=== PATIENT | male | born 2000 | race American Indian/Alaskan Native ===

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

== ENCOUNTER 2020-03-29 01:06 | Emergency (ER) | payer MEDICAID ==
[2020-03-29 01:40] LABS: CHLORIDE,CL 102 mmol/L (98-107); SODIUM,NA 139 mmol/L (136-145)
[2020-03-29 02:24] VITALS: BP 110/68; PULSE 93
[2020-03-29] MEDS: Potassium Chloride 10 MEQ Tab.ER PO ONE (02:31)
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
--- NOTE | 2020-03-29 02:43 | CR ---
PROCEDURE INFORMATION: Exam: XR Chest, 1 View Exam date and time: 03/29/2020 2:17 AM Age: 19 years old Clinical indication: Chest pain; Type not specified TECHNIQUE: Imaging protocol: XR of the chest Views: 1 view. COMPARISON: CR Chest 1V Frontal 07/21/2019 2:54 AM FINDINGS: Lungs: Unremarkable. No consolidation. Pleural space: Unremarkable. No pleural effusion. No pneumothorax. Heart/Mediastinum: Unremarkable. No cardiomegaly. Bones/joints: Unremarkable. IMPRESSION: No acute findings.
== END 2020-03-29 02:45 | disposition home or self-care (01) ==
LOC: DL.ED 01:06
DX: F41.9 Anxiety disorder, unspecified (principal); E87.6 Hypokalemia; R82.5 Elevated urine levels of drugs, medicaments and biological substances; F17.210 Nicotine dependence, cigarettes, uncomplicated
CPT/HCPCS: 36415; 71045; 80053; 80305; 82150; 83690; 84484; 85025; 93005; 99285; A9270

== ENCOUNTER 2020-05-19 20:47 | Emergency (ER) | payer MEDICAID ==
[2020-05-19 21:02] VITALS: BP 130/90; PULSE 86
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
[2020-05-19] MEDS ORDERED: Sulfamethoxazole/Trimethoprim 800-160 MG Tab PO ONE (21:05)
== END 2020-05-19 21:14 | disposition home or self-care (01) ==
LOC: DL.ED 20:47
DX: L02.31 Cutaneous abscess of buttock (principal); F17.210 Nicotine dependence, cigarettes, uncomplicated
CPT/HCPCS: 99282; A9270

== ENCOUNTER 2021-04-14 07:35 | Emergency (ER) | payer MEDICAID ==
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
[~2021-04-14 07:35] MED LIST: Sodium Chloride 0.9% 10 ML Syringe FLUSH PRN
[2021-04-14 07:51] VITALS: BP 133/98; PULSE 90
[2021-04-14 08:33] LABS: ANION GAP 13.7 mEq/L (7-13); CHLORIDE,CL 98 mmol/L (98-107); SODIUM,NA 138 mmol/L (136-145)
[2021-04-14 08:53] LABS: AMPHETAMINES,URINE NEGATIVE (NEGATIVE); BARBITURATES,URINE NEGATIVE (NEGATIVE); BENZODIAZEPINE,URINE NEGATIVE (NEGATIVE); MDMA (ECSTASY), URINE NEGATIVE (NEGATIVE); METHADONE,URINE NEGATIVE (NEGATIVE); METHAMPHETAMINES,URINE NEGATIVE (NEGATIVE); OPIATES,URINE NEGATIVE (NEGATIVE); OXYCODONE,URINE NEGATIVE (NEGATIVE); PHENCYCLIDINE,URINE NEGATIVE (NEGATIVE); TCA,URINE NEGATIVE (NEGATIVE)
--- NOTE | 2021-04-14 09:45 | CR ---
PROCEDURE INFORMATION: Exam: XR Abdomen Exam date and time: 04/14/2021 8:31 AM Age: 20 years old Clinical indication: Constipation TECHNIQUE: Imaging protocol: XR of the abdomen. Views: Frontal supine view of the abdomen. 1 View. COMPARISON: CT Chest Abdomen Pelvis w Cont 06/06/2019 6:01 AM FINDINGS: Gastrointestinal tract: Moderate stool in the colon. Bones/joints: Unremarkable. IMPRESSION: No acute findings
--- NOTE | 2021-04-14 09:45 | CR ---
PROCEDURE INFORMATION: Exam: XR Chest Exam date and time: 04/14/2021 8:29 AM Age: 20 years old Clinical indication: Chest wall pain; Additional info: Chest pain TECHNIQUE: Imaging protocol: XR of the chest. Views: 1 view. COMPARISON: CR Chest 1V Frontal 03/29/2020 2:17 AM FINDINGS: Lungs: Unremarkable. No consolidation. Pleural spaces: Unremarkable. No pleural effusion. No pneumothorax. Heart/Mediastinum: Unremarkable. No cardiomegaly. Bones/joints: Unremarkable. IMPRESSION: No acute findings.
== END 2021-04-14 09:16 | disposition home or self-care (01) ==
LOC: DL.ED 07:35
DX: R00.2 Palpitations (principal); F19.10 Other psychoactive substance abuse, uncomplicated; F15.10 Other stimulant abuse, uncomplicated; Z72.0 Tobacco use
CPT/HCPCS: 36415; 71045; 74018; 80053; 80305-QW; 80307; 81003; 84484; 85025; 93005; 99285-25

== ENCOUNTER 2021-10-11 13:05 | Emergency (ER) | payer MEDICAID ==
[2021-10-11 13:18] VITALS: BP 134/94; PULSE 123
== END 2021-10-11 13:36 | disposition home or self-care (01) ==
LOC: DL.ED 13:05
DX: L03.114 Cellulitis of left upper limb (principal); F19.90 Other psychoactive substance use, unspecified, uncomplicated
CPT/HCPCS: 99283

== ENCOUNTER 2022-03-11 07:05 | Emergency (ER) | payer SELFPAY ==
[2022-03-11] MEDS ORDERED: Doxycycline Monohydrate 100 MG Cap PO ONE ×2 (07:06→07:33)
[2022-03-11 07:29] VITALS: BP 129/94; PULSE 98
[2022-03-11] MEDS ORDERED: cefTRIAXone 250 MG, Lidocaine 1% 0.9 ML IM ONE ×2 (07:31)
[2022-03-11] MEDS ORDERED: Doxycycline Monohydrate 100 MG Cap ONE (08:05)
[2022-03-13 11:47] LABS: C.TRACHOMATIS BY TMA Positive (Negative); N.GONORRHOEAE BY TMA Negative (Negative)
== END 2022-03-11 08:30 | disposition home or self-care (01) ==
LOC: DL.ED 07:05
DX: N45.1 Epididymitis (principal)
CPT/HCPCS: 36415; 81001; 87086; 87491; 87563; 87591; 96372; 99284; A9270; J0696

== ENCOUNTER 2022-08-11 09:41 | Emergency (ER) | payer MEDICAID ==
[2022-08-11] MEDS ORDERED: Sodium Chloride 0.9% 1,000 ML IV ONE (09:54)
[2022-08-11] MEDS ORDERED: Sodium Chloride 0.9% 10 ML Syringe FLUSH PRN (09:55)
[2022-08-11] MEDS ORDERED: cefTRIAXone 2 GM in Sodium Chloride 0.9% 100 ML IV ONE (09:55)
[2022-08-11] MEDS ORDERED: Dexamethasone 4 MG/ML SDV IVPUSH ONE (09:55)
[2022-08-11] MEDS ORDERED: Azithromycin 250 MG Tab PO ONE (09:56)
[2022-08-11 09:58] VITALS: BP 136/113; PULSE 112
== END 2022-08-11 11:25 | disposition home or self-care (01) ==
LOC: DL.ED 09:41
DX: J03.90 Acute tonsillitis, unspecified (principal)
CPT/HCPCS: 87430; 96365; 96375; 99283; A9270; J0696; J1100; J3490; J7030

== ENCOUNTER 2022-12-18 09:19 | Observation (INO) | payer MEDICAID, MEDICARE ==
[2022-12-18] MEDS ORDERED: Ondansetron 4 MG/2 ML SDV IV ONE (10:50)
[2022-12-18] MEDS ORDERED: Sodium Chloride 0.9% 1,000 ML IV ONE ×2 (10:50→10:51)
[2022-12-18] MEDS ORDERED: Ketorolac 30 MG/ML SDV IVPUSH ONE (10:51)
[2022-12-18] MEDS ORDERED: cefTRIAXone 2 GM Vial IVPUSH ONE (10:52)
[2022-12-18] MEDS ORDERED: metroNIDAZOLE/Normal Saline 500 MG in Premix Bag 1 BAG IV ONE (10:53)
[2022-12-18] MEDS ORDERED: Ciprofloxacin in D5W 400 MG in Premix Bag 1 BAG IV ONE ×2 (10:53)
[2022-12-18] MEDS ORDERED: Sodium Chloride 0.9% 500 ML IV SCH (11:00)
[2022-12-18] MEDS ORDERED: metroNIDAZOLE/Normal Saline 100 ML ONE (11:16)
[2022-12-18] MEDS: Sodium Chloride 0.9% 10 ML Syringe FLUSH PRN (11:21)
[2022-12-18 11:44] LABS: ANION GAP 13.5 mEq/L (7-13)
[2022-12-18 11:47] LABS: AMPHETAMINES,URINE NEGATIVE (NEGATIVE); BARBITURATES,URINE NEGATIVE (NEGATIVE); BENZODIAZEPINE,URINE NEGATIVE (NEGATIVE); MDMA (ECSTASY), URINE NEGATIVE (NEGATIVE); METHADONE,URINE NEGATIVE (NEGATIVE); METHAMPHETAMINES,URINE NEGATIVE (NEGATIVE); OPIATES,URINE NEGATIVE (NEGATIVE); OXYCODONE,URINE NEGATIVE (NEGATIVE); PHENCYCLIDINE,URINE NEGATIVE (NEGATIVE); TCA,URINE NEGATIVE (NEGATIVE)
[2022-12-18] MEDS ORDERED: HYDROmorphone 1 MG/ML Syringe IVPUSH ONE (11:57)
[2022-12-18] MEDS ORDERED: Dexamethasone 4 MG/ML SDV IVPUSH ONE (11:58)
[2022-12-18] MEDS ORDERED: Doxycycline Monohydrate 100 MG Cap PO ONE (12:43)
[2022-12-18] MEDS ORDERED: Acetaminophen 325 MG Tab PO PRN (14:20)
[2022-12-18] MEDS ORDERED: Ketorolac 30 MG/ML SDV IVPUSH PRN (14:22)
[2022-12-18] MEDS ORDERED: Albuterol/Ipratropium 3.0-0.5 MG/3 ML Neb Soln NEB PRN (14:23)
[2022-12-18] MEDS ORDERED: Ondansetron 4 MG/2 ML SDV IVPUSH PRN (14:23)
[2022-12-18] MEDS ORDERED: hydrALAZINE 20 MG/ML SDV IVPUSH PRN (14:41)
[2022-12-18] MEDS ORDERED: Phenazopyridine 95 MG Tab PO ONE (16:00)
[2022-12-18] MEDS ORDERED: oxyCODONE ER 10 MG TAB.ER PO ONE (16:00)
[2022-12-18] MEDS ORDERED: Ciprofloxacin in D5W 200 ML ONE (16:49)
[2022-12-18] MEDS: Ciprofloxacin in D5W 400 MG in Premix Bag 1 BAG IV SCH ×2 (17:11)
[2022-12-18] MEDS: Acetaminophen/HYDROcodone 325-5 MG Tab PO PRN (20:23)
[2022-12-18] MEDS: Saccharomyces Boulardii (Probiotic) 250 MG Cap PO SCH (20:24)
[2022-12-18] MEDS: Phenazopyridine 95 MG Tab PO SCH (20:24)
[2022-12-18] MEDS ORDERED: Apixaban 5 MG Tab PO SCH (21:00)
[2022-12-19] MEDS: Temazepam 15 MG Cap PO PRN ×2 (01:38→21:09)
[2022-12-19] MEDS ORDERED: Ciprofloxacin in D5W 200 ML ONE (04:59)
[2022-12-19] MEDS: Ciprofloxacin in D5W 400 MG in Premix Bag 1 BAG IV SCH ×4 (05:12→17:30)
[2022-12-19 06:57] LABS: ANION GAP 11.1 mEq/L (7-13)
[2022-12-19] MEDS: Phenazopyridine 95 MG Tab PO SCH ×2 (09:34→20:59)
[2022-12-19] MEDS: Saccharomyces Boulardii (Probiotic) 250 MG Cap PO SCH ×2 (09:34→20:59)
[2022-12-19] MEDS: Famotidine 20 MG Tab PO SCH (09:34)
[2022-12-19] MEDS: oxyCODONE ER 10 MG TAB.ER PO SCH ×2 (09:35→20:59)
[2022-12-19] MEDS: Sodium Chloride 0.9% 10 ML Syringe FLUSH PRN ×2 (09:36→17:30)
[2022-12-19] MEDS: cefTRIAXone 2 GM Vial IVPUSH SCH (09:37)
[2022-12-19] MEDS: Ibuprofen 600 MG Tab PO SCH (15:04)
[2022-12-20] MEDS: Ibuprofen 600 MG Tab PO SCH ×2 (00:19→09:51)
[2022-12-20] MEDS: Ciprofloxacin in D5W 400 MG in Premix Bag 1 BAG IV SCH ×2 (05:38)
[2022-12-20 06:00] LABS: ANION GAP 9.3 mEq/L (7-13)
[2022-12-20] MEDS: Saccharomyces Boulardii (Probiotic) 250 MG Cap PO SCH (09:44)
[2022-12-20] MEDS: Phenazopyridine 95 MG Tab PO SCH (09:44)
[2022-12-20] MEDS: oxyCODONE ER 10 MG TAB.ER PO SCH (09:45)
[2022-12-20] MEDS: cefTRIAXone 2 GM Vial IVPUSH SCH (09:48)
[2022-12-20] MEDS: Famotidine 20 MG Tab PO SCH (09:51)
[2022-12-20 12:10] VITALS: BP 129/67; PULSE 83
[2022-12-20] MEDS: Acetaminophen/HYDROcodone 325-5 MG Tab PO PRN (13:42)
[2022-12-25 12:47] LABS: C.TRACHOMATIS BY TMA Negative (Negative); N.GONORRHOEAE BY TMA Positive (Negative)
== END 2022-12-20 13:40 | disposition home or self-care (01) ==
LOC: DL.ED 09:19 → DL.MS 13:31
PROVIDERS: ADMIT Internal Medicine; ATTEND Internal Medicine
DX: N45.3 Epididymo-orchitis (principal); D72.829 Elevated white blood cell count, unspecified; N39.0 Urinary tract infection, site not specified; E87.1 Hypo-osmolality and hyponatremia; E87.8 Other disorders of electrolyte and fluid balance, not elsewhere classified; E87.20 Acidosis, unspecified; R73.9 Hyperglycemia, unspecified; E88.09 Other disorders of plasma-protein metabolism, not elsewhere classified; R74.01 Elevation of levels of liver transaminase levels; R79.82 Elevated C-reactive protein (CRP); F12.90 Cannabis use, unspecified, uncomplicated; F17.210 Nicotine dependence, cigarettes, uncomplicated; Z79.899 Other long term (current) drug therapy
CPT/HCPCS: 36415; 76870; 80053; 80305-QW; 81001; 83605; 83735; 84145; 85025; 86140; 87040; 87086; 87491; 87563; 87591; 96365; 96366; 96367; 96375; 96376; 99222; 99232; 99238; 99284; 99285-25; A9270-GY; G0378; J0696; J0744; J1100; J1170; J1885; J2405; J3490; J7030; J7040

== ENCOUNTER 2023-02-01 02:30 | Emergency (ER) | payer OTHER ==
[2023-02-01] MEDS: Amoxicillin/Clavulanate K 875-125 MG Tab PO ONE (03:55)
== END 2023-02-01 03:57 ==
LOC: EDBD → DL.ED 02:30 → MERGE 02:30 → DL.ED 03:57
DX: S71.152A Open bite, left thigh, initial encounter (principal); S61.402A Unspecified open wound of left hand, initial encounter; S61.217A Laceration without foreign body of left little finger without damage to nail, initial encounter; W54.0XXA Bitten by dog, initial encounter; V89.2XXA Person injured in unspecified motor-vehicle accident, traffic, initial encounter
CPT/HCPCS: 99283

== ENCOUNTER 2024-05-26 19:05 | Emergency (ER) | payer MEDICAID ==
[2024-05-26 19:29] VITALS: BP 144/80; PULSE 126
[2024-05-26] MEDS: Dexamethasone 4 MG/ML SDV PO ONE (20:42)
== END 2024-05-26 21:06 | disposition home or self-care (01) ==
LOC: DL.ED 19:05
DX: R21 Rash and other nonspecific skin eruption (principal); F15.90 Other stimulant use, unspecified, uncomplicated
CPT/HCPCS: 99283; J1100

== ENCOUNTER 2024-08-29 19:47 | Emergency (ER) | payer MEDICAID ==
[2024-08-29] MEDS: Take Home: Lidocaine 2% Viscous Solution 15 ML UD, 2 Cup Pack PO ONE (20:06)
[2024-08-29 20:13] VITALS: BP 124/78; PULSE 95
== END 2024-08-29 20:10 | disposition home or self-care (01) ==
LOC: DL.ED 19:47
DX: K04.7 Periapical abscess without sinus (principal)
CPT/HCPCS: 64400; 99282; A9270

== ENCOUNTER 2024-11-21 15:53 | Emergency (ER) | payer MEDICAID ==
[2024-11-21 16:16] VITALS: BP 138/87; PULSE 68
== END 2024-11-21 16:07 | disposition home or self-care (01) ==
LOC: DL.ED 15:53
DX: T75.4XXA Electrocution, initial encounter (principal)
CPT/HCPCS: 99282; 99284

== ENCOUNTER 2024-12-02 15:49 | Emergency (ER) | payer MEDICAID ==
[2024-12-02 16:10] VITALS: BP 148/85; PULSE 107
[2024-12-02] MEDS: Amoxicillin/Clavulanate K 875-125 MG Tab PO ONE (16:44)
== END 2024-12-02 16:30 ==
LOC: DL.ED 15:49
DX: K04.7 Periapical abscess without sinus (principal)
CPT/HCPCS: 99282; 99283; A9270

== ENCOUNTER 2025-02-01 15:23 | Emergency (ER) | payer MEDICAID ==
[2025-02-01 15:17] LABS: BASOPHILS PERCENT AUTO 0.2 % (0.0-1.0); EOSINOPHILS PERCENT AUTO 0.2 % (1.0-3.0); HEMATOCRIT 41.6 % (40.0-54.0); HEMOGLOBIN 14.2 g/dL (14.0-18.0); LYMPHOCYTES PERCENT AUTO 26.6 % (20.5-50.1); MEAN CORPUSCULAR HEMOGLOBIN 31.8 pg (27.0-34.0); MEAN CORPUSCULAR HGB CONC 34.1 g/dL (33.0-35.0); MEAN CORPUSCULAR VOLUME 93.1 fL (80-100); MONOCYTES PERCENT AUTO 8.9 % (2-8); NEUTROPHILS PERCENT AUTO 64.1 % (42.2-75.2); PLATELET COUNT,PLT 201 10^3/uL (150-450); RED BLOOD CELL COUNT 4.47 10^6/uL (4.6-6.2); WHITE BLOOD CELL COUNT,WBC 10.1 10^3/uL (5.0-10.0)
[2025-02-01 15:31] LABS: ANION GAP 10.3 mEq/L (7-13); CALCIUM 9.6 mg/dL (8.5-10.1); CREATININE 1.04 mg/dL (0.70-1.30); EST CRCL DRUG DOSING (CG) 123.78 mL/min; MAGNESIUM 1.9 mg/dL (1.8-2.4); POTASSIUM,K 3.3 mmol/L (3.5-5.1)
[2025-02-01] MEDS: Mupirocin Oint 22 GM Tube TOP ONE (15:40)
[2025-02-01 16:49] VITALS: BP 151/93; PULSE 86
[2025-02-01] MEDS: Magnesium Oxide 400 MG Tab PO ONE (17:01)
[2025-02-01] MEDS: Potassium Chloride 10 MEQ Tab.ER PO ONE (17:01)
== END 2025-02-01 17:07 | disposition home or self-care (01) ==
LOC: DL.ED 15:23
DX: S01.112A Laceration without foreign body of left eyelid and periocular area, initial encounter (principal); S09.90XA Unspecified injury of head, initial encounter; X58.XXXA Exposure to other specified factors, initial encounter
CPT/HCPCS: 36415; 70450; 73120; 73560; 80048; 83735; 85025; 99284; A9270; 99282

== ENCOUNTER 2025-08-15 19:44 | Emergency (ER) | payer MEDICAID ==
[2025-08-15] MEDS: Magnesium Citrate Solution 296 ML Bottle PO ONE (20:27)
[2025-08-15 20:48] VITALS: BP 121/95; PULSE 99
== END 2025-08-15 20:44 | disposition home or self-care (01) ==
LOC: DL.ED 19:44
DX: K59.00 Constipation, unspecified (principal); F17.200 Nicotine dependence, unspecified, uncomplicated
CPT/HCPCS: 99283; A9270-GY